=== PATIENT | female | born 1940 | race Caucasian/White ===

== ENCOUNTER 2016-10-16 07:58 | Emergency (ER) | payer MEDICARE, BC ==
[2016-10-16 08:15] VITALS: BP 150/76
--- NOTE | 2016-10-16 08:29 | EDM.PDOC ---
[id number] Complaint: HURT RT KNEE Time Seen by Provider: 10/16/16 08:15 Source of Information: Reports: Patient History Limitations: Reports: No Limitations - History of Present Illness INITIAL COMMENTS - FREE TEXT/NARRATIVE: 76-year-old female stumbled yesterday landing on her knees, today is having significant right knee discomfort. She is having difficulty bearing weight. Onset: Other (Last evening) Duration: Hour(s): (13 hours ago) Location: Reports: Lower Extremity, Right Quality: Reports: Ache Severity: Moderate Improves with: Reports: None Worsens with: Reports: Other (Weight-bearing causes increased pain), Movement - Related Data Allergies Allergy/AdvReac Type Severity Reaction Status Date / Time No Known Allergies Allergy Verified 10/16/16 08:14 Home Meds: Home Meds NK [No Known Home Meds] 10/16/16 [History] Past Medical History [employer] History: Reports: Polycystic Ovaries - Past Surgical History HEENT Surgical History: Reports: Tonsillectomy Female Surgical History: Reports: Hysterectomy Social & Family History - Tobacco Use Smoking Status *Q: Never Smoker Review of Systems - Review of Systems Review Of Systems: See Below Constitutional: Denies: Fever Respiratory: Denies: Shortness of Breath Cardiovascular: Denies: Chest Pain GI/Abdominal: Denies: Abdominal Pain Skin: Reports: Bruising (A few bruises on the anterior knees bilaterally) Psychiatric: Reports: No Symptoms ED EXAM, GENERAL - Physical Exam Exam: See Below Exam Limited By: No Limitations General Appearance: Alert, No Apparent Distress Respiratory/Chest: No Respiratory Distress Cardiovascular: Regular Rate, Rhythm Extremities: Other (Remainder of exam is limited to the lower extremities. She has some superficial bruising on the anterior aspect of both knees but is particularly tender to palpation across the tibial plateau anteriorly on the right knee. No significant effusion.) Course - Vital Signs Last Recorded V/S: Last Vital Signs Temp 97.2 F 10/16/16 08:24 Pulse 89 10/16/16 08:24 Resp 20 10/16/16 08:24 BP 150/76 H 10/16/16 08:24 Pulse Ox 99 10/16/16 08:24 - Orders/Labs/Meds Orders: Active Orders 24 hr Category Date Time Status Knee Min 4V Rt [CR] Stat Exams 10/16/16 08:26 Taken DME for Discharge [COMM] Stat Oth 10/16/16 09:16 Ordered Meds: Medications Discontinued Medications Generic Name Dose Route Start Last Admin Trade Name Shalom PRN Reason Stop Dose Admin Hydrocodone Bitart/Acetaminophen 1 tab 10/16/16 09:30 10/16/16 09:33 [place] 325-5 Mg PO 10/16/16 09:31 1 tab ONETIME ONE Administration - Re-Assessments/Exams Free Text/Narrative Re-Assessment/Exam: 10/16/16 08:29 A right knee x-ray was obtained. 10/16/16 09:15 X-ray shows a small amount of chondrocalcinosis but no acute findings such as fracture. An Mick wrap was applied to the knee and the patient was fitted with crutches. She can followup with orthopedics this week if not improving. Departure - Departure Time of Disposition: 09:39 Disposition: Home, Self-Care 01 Condition: good Clinical Impression: Contusion of knee, right Qualifiers: Encounter type: initial encounter Qualified Code(s): S80.01XA - Contusion of right knee, initial encounter - Discharge Information Instructions: Knee Pain Referrals: Andreia Tello PA [Primary Care Provider] - Forms: ED Department Discharge Care Plan Goals: Mick wrap for support the next several days, and use crutches until you can ambulate without needing crutches. Ibuprofen or naproxen should help. Recheck next week if not improving satisfactorily. - My Orders Last 24 Hours: My Active Orders 10/16/16 08:26 Knee Min 4V Rt [CR] Stat 10/16/16 09:16 DME for Discharge [COMM] Stat - Assessment/Plan Last 24 Hours: My Active Orders 10/16/16 08:26 Knee Min 4V Rt [CR] Stat 10/16/16 09:16 DME for Discharge [COMM] Stat
[2016-10-16] MEDS ORDERED: Acetaminophen/HYDROcodone 325-5 MG Tab PO ONE (09:30)
--- NOTE | 2016-10-18 10:25 | CR ---
Knee Min 4V Rt INDICATION: fall,injury FINDINGS: Horizontal and vertical lucency through the patella on the AP views, consistent with minim al displaced acute fracture. Large knee effusion. Small exostosis medial proximal tibia. Chondrocalc inosis in the menisci. Consider noncontrast CT if there is clinical suspicion for nondisplaced dista l femoral or proximal tibial fracture.
== END 2016-10-16 09:40 | disposition home or self-care (01) ==
LOC: JP.ED 07:58
DX: S80.01XA Contusion of right knee, initial encounter (principal); Z90.710 Acquired absence of both cervix and uterus; Z98.890 Other specified postprocedural states; W01.0XXA Fall on same level from slipping, tripping and stumbling without subsequent striking against object, initial encounter
CPT/HCPCS: 73564; 99284; A9270; 99283

== ENCOUNTER 2018-10-25 17:49 | Emergency (ER) | payer MEDICARE, BC ==
[2018-10-25] MEDS ORDERED: Carvedilol 25 MG Tab PO ONE (18:31)
--- NOTE | 2018-10-25 18:39 | EDM.PDOC ---
ED HPI GENERAL MEDICAL PROBLEM - General Chief Complaint: Cardiovascular Problem Stated Complaint: HIGH BP Time Seen by Provider: 10/25/18 18:31 Source of Information: Reports: Patient, Family, Old Records, RN Notes Reviewed History Limitations: Reports: No Limitations - History of Present Illness INITIAL COMMENTS - FREE TEXT/NARRATIVE: 78-year-old female presents emergency department today sent over from clinic for concerns about elevated blood pressure, she has not taken her evening dose of blood pressure medications at this time. She states she's asymptomatic has no symptoms whatsoever but her blood pressure was systolically well over 200 and clinic and was confirmed. - Related Data Allergies Allergy/AdvReac Type Severity Reaction Status Date / Time No Known Allergies Allergy Verified 10/25/18 18:20 Home Meds: Home Meds Losartan [Cozaar] 100 mg PO DAILY 03/08/18 [History] Carvedilol 25 mg PO BID 10/25/18 [History] Past Medical History HEENT History: Reports: Impaired Vision Cardiovascular History: Reports: Hypertension [employer] History: Reports: Polycystic Ovaries, Musculoskeletal History: Reports: Arthritis - Infectious Disease History Infectious Disease History: Reports: Chicken Pox - Past Surgical History HEENT Surgical History: Reports: Tonsillectomy GI Surgical History: Reports: Colonoscopy Female Surgical History: Reports: Hysterectomy, Salpingo-Oophorectomy Social & Family History - Tobacco Use Smoking Status *Q: Never Smoker - Caffeine Use Caffeine Use: Reports: None - Recreational Drug Use Recreational Drug Use: No ED ROS GENERAL - Review of Systems Review Of Systems: See Below Constitutional: Reports: No Symptoms HEENT: Reports: No Symptoms Respiratory: Reports: No Symptoms Cardiovascular: Reports: No Symptoms GI/Abdominal: Reports: No Symptoms : Reports: No Symptoms Neurological: Reports: No Symptoms ED EXAM, GENERAL - Physical Exam Exam: See Below Exam Limited By: No Limitations General Appearance: Alert, WD/WN, No Apparent Distress Respiratory/Chest: No Respiratory Distress, Lungs Clear, Normal Breath Sounds, No Accessory Muscle Use, Chest Non-Tender Cardiovascular: Regular Rate, Rhythm, No Murmur Course - Vital Signs Last Recorded V/S: Last Vital Signs Temp 97.5 F 10/25/18 18:18 Pulse 73 10/25/18 19:46 Resp 16 10/25/18 18:28 BP 193/89 H 10/25/18 19:46 Pulse Ox 95 10/25/18 19:46 - Orders/Labs/Meds Labs: Laboratory Tests 10/25/18 10/25/18 10/25/18 Range/Units 18:53 18:53 20:44 WBC 5.6 (4.5-11.0) K/uL RBC 3.77 (3.30-5.50) M/uL Hgb 12.6 (12.0-15.0) g/dL Hct 36.5 (36.0-48.0) % MCV 97 (80-98) fL MCH 33 H (27-31) pg MCHC 35 (32-36) % Plt Count 235 (150-400) K/uL Sodium 128 L (140-148) mmol/L Potassium 4.4 (3.6-5.2) mmol/L Chloride 92 L (100-108) mmol/L Carbon Dioxide 28 (21-32) mmol/L Anion Gap 12.4 (5.0-14.0) mmol/L BUN 16 (7-18) mg/dL Creatinine 0.6 (0.6-1.0) mg/dL Est Cr Clr Drug Dosing 56.78 mL/min Estimated GFR (MDRD) > 60 (>60) Glucose 134 H (74-106) mg/dL Calcium 9.2 (8.5-10.1) mg/dL Urine Color Yellow Urine Appearance Clear Urine pH 1.0 L (4.5-8.0) Ur Specific [place] 8.000 H (1.008-1.030) Urine Protein Negative (NEGATIVE) mg/dL Urine Glucose (UA) Normal (NEGATIVE) mg/dL Urine Ketones Negative (NEGATIVE) mg/dL Urine Occult Blood Negative (NEGATIVE) Urine Nitrite Negative (NEGATIVE) Urine Bilirubin Negative (NEGATIVE) Urine Urobilinogen Normal (NORMAL) mg/dL Ur Leukocyte Esterase Negative (NEGATIVE) Urine RBC Not seen (0-5) Urine WBC Not seen (0-5) Ur Epithelial Cells Not seen Amorphous Sediment Rare Urine Bacteria Not seen Urine Mucus Not seen Meds: Medications Discontinued Medications Generic Name Dose Route Start Last Admin Trade Name Freq PRN Reason Stop Dose Admin Carvedilol 25 mg 10/25/18 18:31 10/25/18 18:35 Coreg PO 10/25/18 18:32 25 mg ONETIME ONE Administration Departure - Departure Time of Disposition: 21:20 Disposition: Home, Self-Care 01 Condition: Fair Clinical Impression: Hypertension Qualifiers: Hypertension type: essential hypertension Qualified Code(s): I10 - Essential ( primary) hypertension Referrals: PCP,None [Primary Care Provider] - Forms: ED Department Discharge Additional Instructions: Continue with your current medications please follow-up with your primary care provider in the next 3-5 days for reevaluation of blood pressure call return to the emergency department worsening symptoms - Assessment/Plan Plan: Assessment Acuity = acute Site and laterality = hypertension Etiology = unknown etiology Manifestations = none Location of injury = Home Lab values = CBC unremarkable sodium low at 1.8 consistent hyponatremia the remainder BMP is unremarkable urinalysis also unremarkable Plan Blood pressure did come down with medications systolic 165 have her follow up with primary care in the next 3-5 days. Continue current medications This note was dictated using [email or web address] voice recognition software please call with any questions on syntax or grammar.
[2018-10-25 21:27] VITALS: BP 123/58
== END 2018-10-25 21:45 | disposition home or self-care (01) ==
LOC: JP.ED 17:49
DX: I10 Essential (primary) hypertension (principal); Z79.899 Other long term (current) drug therapy
CPT/HCPCS: 36415; 80048; 81001; 85027; 99283; A9270

== ENCOUNTER 2022-02-21 17:35 | Emergency (ER) | payer MEDICARE, BC ==
[2022-02-21] MEDS ORDERED: Losartan 50 MG Tab PO ONE (18:29)
[2022-02-21] MEDS ORDERED: Carvedilol 12.5 MG Tab PO ONE (18:29)
[2022-02-21 19:55] VITALS: BP 177/74; PULSE 74
== END 2022-02-21 20:54 | disposition home or self-care (01) ==
LOC: JP.ED 17:35
DX: N30.01 Acute cystitis with hematuria (principal); I10 Essential (primary) hypertension; Z88.8 Allergy status to other drugs, medicaments and biological substances; Z79.899 Other long term (current) drug therapy; Z86.73 Personal history of transient ischemic attack (TIA), and cerebral infarction without residual deficits
CPT/HCPCS: 36415; 80048; 81001; 85025; 99283; A9270